=== PATIENT | female | born 1990 | race Caucasian/White ===

== ENCOUNTER 2018-12-30 16:33 | Inpatient (IN) | payer SELFPAY ==
[2018-12-30] MEDS ORDERED: hydrALAZINE 20 MG/ML VIAL SLOW IVP PRN ×2 (16:53→17:41)
[2018-12-30] MEDS ORDERED: Ibuprofen 800 MG TAB PO PRN (17:41)
[2018-12-30] MEDS ORDERED: NS / Oxytocin 40 units/1000ml 1,000 ML IV PRN (17:41)
[2018-12-30] MEDS ORDERED: Methylergonovine 0.2 MG/ML VIAL IM PRN (17:41)
[2018-12-30] MEDS ORDERED: Lactated Ringer's 1,000 ML IV PRN (17:41)
[2018-12-30] MEDS ORDERED: Misoprostol 200 MCG TAB PR PRN (17:41)
[2018-12-30] MEDS ORDERED: Ondansetron PF 4 MG/2 ML Vial IVP PRN (17:41)
[2018-12-30] MEDS ORDERED: Promethazine HCl 25 MG/ML VIAL IM PRN (17:41)
[2018-12-30] MEDS ORDERED: Lidocaine 1% (PF) 30 ML VIAL SC PRN (17:41)
[2018-12-30] MEDS ORDERED: HYDROcodone/Acetaminophen 5/325 mg Tablet PO PRN ×2 (17:41)
[2018-12-30 18:07] VITALS: BMI 22.8
[2018-12-30 18:26] LABS: Hemoglobin 14.1 g/dL (12.0-16.0); Mean Corpuscular HGB CONC 35.9 g/dL (32.0-36.0); Mean Corpuscular Hemoglobin 35.2 pg (27.0-31.0); Mean Corpuscular Volume 97.8 fL (78.0-98.0); Mean Platelet Volume 8.8 fL (7.4-10.4); Platelet Count 229 thou/uL (130-400); RBC Distribution Width 11.8 % (11.5-14.5); Red Blood Cell (RBC) Count 4.01 mill/uL (4.20-5.40); White Blood Cell (WBC) Count 13.6 thou/uL (4.8-10.8)
[2018-12-30] MEDS ORDERED: NS / Oxytocin 40 units/1000ml 1,000 ML ONE (18:58)
[2018-12-30 19:09] LABS: HBSAg Index 0.13 S/CO (0-0.99); Hep B Surf Ag Non-Reactive S/CO (NonReactive); Syphilis Antibody Nonreactive (Nonreactive); Syphilis Antibody Index 0.04 S/CO (<1.00 Non-Reactive)
[2018-12-30] MEDS ORDERED: Lidocaine 1% (PF) 30 ML VIAL ONE (19:10)
--- NOTE | 2018-12-30 19:50 | PDOC.LDHP ---
Labor and Delivery H&P Chief complaint: contractions HPI: Patient started having irregular contractions last night at 2300. This morning they started increasing to every 8 mins and eventually every 3-5 mins for an hour. 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 The infant has been moving. She denies ROM Current gestational age (weeks): 39 Due date: 01/03/19 Dating criteria: last menstrual period (and verified with a first trimester US at [id number]) Grav: 1 Para: 0 Current complications: none Abnormal US findings: No Current medications: pre-aurelia vitamins Allergies/Adverse Reactions: Allergies Allergy/AdvReac Type Severity Reaction Status Date / Time No Known Drug Allergies Allergy Verified 12/30/18 19:03 Social history: none - Physical Exam Vital signs reviewed and normal: yes General: breathing through contractions Lungs: nonlabored breathing Abdomen: gravid FHT: category 1 - Vaginal Exam cm dilated: 9 Effacement: 100% Station: 1+ - OB Labs Blood type: O RH: positive Antibody Screen: negative HIV: negative RPR: negative HEPSAg: negative 1 hour GCT: negative GBS: negative Urine drug screen: negative Rubella: immune - Assessment L&D Assessment: term patient in labor - Plan Plan: admit to L&D
[2018-12-31] MEDS ORDERED: Lactated Ringer's 500 ML IV PRN (00:46)
[2018-12-31] MEDS ORDERED: Acetaminophen 325 MG TAB PO PRN (00:46)
[2018-12-31] MEDS ORDERED: Ondansetron PF 4 MG/2 ML Vial IVP PRN ×2 (00:46→07:53)
[2018-12-31] MEDS ORDERED: Promethazine HCl 25 MG/ML VIAL IM PRN (00:46)
[2018-12-31] MEDS ORDERED: Naloxone HCl 0.4 mg/ml Vial IVP PRN ×2 (00:46)
[2018-12-31] MEDS ORDERED: diphenhydrAMINE 50 MG/ML VIAL IVP PRN (00:46)
[2018-12-31] MEDS ORDERED: ePHEDrine/0.9% NaCl/PF SYRINGE 50 mg/10 ml SLOW IVP PRN (00:46)
[2018-12-31] MEDS ORDERED: Fentanyl 4 mcg/Bupivacaine 0.1% Cassette 100 ML EPIDURAL SCH (01:00)
[2018-12-31] MEDS ORDERED: Communication Order-Pharmacy FS SCH (01:00)
--- NOTE | 2018-12-31 07:50 | PDOC.OPDEL ---
OB Operative/Delivery Note Delivery Dr/Surgeon: Frida Jhaveri Pre-Delivery Diagnosis: active labor Procedure/Post Delivery Dx: spontaneous vaginal delivery Weeks gestation: 39 Anesthesia: epidural - Findings A Sex: male - 1 min: 8 - 5 min: 9 - Additional Findings/Plan Placenta delivered: spontaneous Repaired Obstetrical Laceration: 2nd degree Estimated blood loss: 350mL Post delivery plan: routine recovery
[2018-12-31] MEDS ORDERED: Milk Of Magnesia 30 ML UDCUP PO PRN (07:53)
[2018-12-31] MEDS ORDERED: Misoprostol 200 MCG TAB VAG PRN (07:53)
[2018-12-31] MEDS ORDERED: Methylergonovine 0.2 MG/ML VIAL IM PRN (07:53)
[2018-12-31] MEDS ORDERED: hydrALAZINE 20 MG/ML VIAL SLOW IVP PRN (07:53)
[2018-12-31] MEDS ORDERED: HYDROcodone/Acetaminophen 5/325 mg Tablet PO PRN ×2 (07:53)
[2018-12-31] MEDS ORDERED: Lanolin Ointment 7 GM TUBE TOP PRN (07:53)
[2018-12-31] MEDS ORDERED: Adacel (T-DAP) 0.5 ML SYRINGE IM ONE (07:53)
[2018-12-31] MEDS ORDERED: NS / Oxytocin 40 units/1000ml 1,000 ML IV SCH (07:53)
[2018-12-31] MEDS ORDERED: Benzocaine-Menthol 82.5 ML CAN TOP PRN (07:53)
[2018-12-31] MEDS ORDERED: Bisacodyl 10 MG SUPP PR PRN (07:53)
[2018-12-31] MEDS ORDERED: Bupivacaine/Epinephrine 0.25% 30 ML VIAL ONE (11:11)
[2018-12-31] MEDS: Ferrous Sulfate 325 MG TAB PO SCH ×2 (13:27→17:37)
[2018-12-31] MEDS: Prenatal Vitamin 1 TAB PO SCH (13:27)
[2018-12-31] MEDS: Ibuprofen 800 MG TAB PO SCH ×3 (13:27→21:11)
[2018-12-31] MEDS: Docusate Calcium (SURFAK) 240 MG CAP PO SCH ×2 (13:27→21:11)
[2019-01-01] MEDS: Ibuprofen 800 MG TAB PO SCH (04:54)
[2019-01-01] MEDS: Prenatal Vitamin 1 TAB PO SCH (08:12)
[2019-01-01] MEDS: Ferrous Sulfate 325 MG TAB PO SCH (08:12)
[2019-01-01] MEDS: Docusate Calcium (SURFAK) 240 MG CAP PO SCH (08:12)
[2019-01-01 13:24] VITALS: TEMP 98.4
[2019-01-01 13:29] VITALS: BP 103/57
== END 2019-01-01 15:55 | disposition home or self-care (01) | DRG 807 ==
LOC: L&D/OP 16:33 → L&D-LIB 18:51 → L&D 12-31 08:04 → 3SW 12-31 11:00
PROVIDERS: ADMIT Obstetrics & Gynecology; ATTEND Obstetrics & Gynecology
PROC: 10E0XZZ Delivery of Products of Conception, External Approach (ICD-10-PCS; principal; 2018-12-31)
PROC: 0KQM0ZZ Repair Perineum Muscle, Open Approach (ICD-10-PCS; 2018-12-31)
PROC: 10907ZC Drainage of Amniotic Fluid, Therapeutic from Products of Conception, Via Natural or Artificial Opening (ICD-10-PCS; 2018-12-31)
DX: O77.0 Labor and delivery complicated by meconium in amniotic fluid (principal); Z37.0 Single live birth; O63.1 Prolonged second stage (of labor); O70.1 Second degree perineal laceration during delivery; Z3A.39 39 weeks gestation of pregnancy
CPT/HCPCS: 36415; 51702; 85027; 86780; 86850; 86900; 86901; 87340; 99285; J2001